=== PATIENT | male | born 1990 | race Asian ===

== ENCOUNTER → 2021-12-26 | Outpatient (CLI) | payer OTHER ==
[~2021-12-26] MED LIST: AMOXICILLIN 8751 TAB PO; CEPHALEXIN500 M1 PO; LORTAB 5/500 501 TAB PO; NO HOME MEDICATIONS; PREDNISONE20 MG PO; PROCTOFOAM-HC 11 FOA TOP
== END ==
LOC: COL.RAD 06:39
DX: B18.1 Chronic viral hepatitis B without delta-agent (principal); R17 Unspecified jaundice

== ENCOUNTER → 2022-06-22 | Outpatient (CLI) | payer OTHER ==
[2022-06-23 16:11] LABS: HEPATITIS B SURFACE ANTIGEN Positive (Negative)
[2022-06-26 10:15] LABS: HEPATITIS Be ANTIGEN Positive (Negative)
== END ==
LOC: COL.LAB 06-20 09:11
PROVIDERS: Student in an Organized Health Care Education/Training Program
DX: B18.1 Chronic viral hepatitis B without delta-agent (principal); R17 Unspecified jaundice